=== PATIENT | female | born 1955 | race Caucasian/White ===

== ENCOUNTER 2021-04-19 10:01 | Outpatient (CLI) | payer MEDICARE, MEDICAID, SELFPAY ==
--- NOTE | 2021-04-19 10:14 | MM_ITS ---
WS: [id number] BILATERAL SCREENING DIGITAL MAMMOGRAM WITH CAD HISTORY: SCREENING COMPARISON: None available. Bilateral CC and MLO views submitted. Computer aided detection analyzed. Breast composition: There are scattered areas of fibroglandular density. No suspicious masses, microc alcifications or architectural distortion. Benign calcifications in the anterior LEFT breast. MM/[place] [id number] IMPRESSION: BI-RADS: 2-Benign FOLLOW UP: 1 Year Follow-up
== END 2021-04-19 10:02 | disposition home or self-care (01) ==
LOC: RADSHAW 10:10
PROVIDERS: PCP Nurse Practitioner Family; Visit Provider Nurse Practitioner Family
DX: Z12.31 Encounter for screening mammogram for malignant neoplasm of breast (principal)
CPT/HCPCS: 77067

== ENCOUNTER 2022-01-20 11:41 | Outpatient (CLI) | payer MEDICARE, MEDICAID, SELFPAY ==
--- NOTE | 2022-01-20 11:52 | CT_ITS ---
WS: [id number] LDCT LUNG CANCER SCREENING TECHNIQUE: Noncontrast CT of the chest with coronal and sagittal reformatted images. CLINICAL INFORMATION: HISTORY OF TOBACCO USE COMPARISON: None. DLP: 83.62 mGy.cm DIvol: Mean CTDIvol: 1.60 (mGy) All CT scans at [facility] use at least one of these dose optimization techniques: automat ed exposure control; mA and/or kV adjustment per patient size (includes targeted exams where dose is matched to clinical indication); or iterative reconstruction. FINDINGS: Moderate chronic emphysematous changes. No acute pulmonary infiltrates. No focal pneumonia or pleural fluid. Several scattered noncalcified tiny subcentimeter pulmonary nodules measuring 2 to 3 mm. Normal caliber thoracic aorta. Mild aortic calcification. Coronary calcification. No mediastinal or h ilar lymphadenopathy. No axillary lymphadenopathy. Adrenal glands are normal. Partially visualized low-attenuation lesion LEFT kidney is indeterminate a nd recommend ultrasound or contrast-enhanced CT in further evaluation. This measures approximately 1. 5 cm. Mild hepatomegaly and splenomegaly. Slightly cirrhotic configuration to the liver. Normal GE ju nction. Fatty atrophy of the pancreas. CT/CT lung screening [id number] IMPRESSION: 1. Partially visualized indeterminant LEFT renal lesion measuring 1.5 CM. Aaron mmend further evaluation with ultrasound or contrast-enhanced CT abdomen pelvis . 2. Hepatomegaly and splenomegaly with cirrhotic configuration to the liver. Re commend correlation with liver function tests. LUNG-RADS: 2S-Benign Appearance or Behavior with Significant Findings FOLLOW UP: 12 Month: Continue annual screening with LDCT
== END 2022-01-20 11:42 | disposition home or self-care (01) ==
LOC: RAD 11:46
PROVIDERS: PCP Nurse Practitioner Family; Visit Provider Family Medicine
DX: Z12.2 Encounter for screening for malignant neoplasm of respiratory organs (principal); Z87.891 Personal history of nicotine dependence
CPT/HCPCS: 71271

== ENCOUNTER 2022-02-14 13:35 | Outpatient (CLI) | payer MEDICARE, MEDICAID, SELFPAY ==
--- NOTE | 2022-02-14 13:43 | US_ITS ---
WS: [id number] RENAL ULTRASOUND HISTORY: RENAL LESION COMPARISON: CT 01/20/2022 TECHNIQUE: 2-D and color Doppler imaging of the kidney submitted. Right kidney: 8.7 cm x 3.5 cm x 3.7 cm. Low normal size kidney. No mass or hydronephrosis. Left kidney: 8.7 cm x 4.3 cm x 4.3 cm. Low normal size kidney. There is a small cortical cysts from the inferior pole measuring 2.3 x 1.4 x 1.5 cm. No mass from the upper pole. Aorta: Normal. Urinary Bladder: Normal distention. US/US renal BI* [id number] IMPRESSION: 1. Simple cyst lower pole LEFT kidney measures 2.3 x 1.4 x 1.5 cm. 2. No solid mass or cyst from the upper pole LEFT kidney. 3. Mild bilateral renal atrophy.
== END 2022-02-14 13:36 | disposition home or self-care (01) ==
LOC: RAD 13:36
PROVIDERS: PCP Nurse Practitioner Family; Visit Provider Family Medicine
DX: N28.9 Disorder of kidney and ureter, unspecified (principal); N28.1 Cyst of kidney, acquired; N26.1 Atrophy of kidney (terminal)
CPT/HCPCS: 76770

== ENCOUNTER → 2022-03-02 12:52 | Outpatient (BNVA) | payer MEDICARE, MEDICAID, SELFPAY | PROVIDERS: PCP Family Medicine; Visit Provider Internal Medicine Critical Care Medicine | DX: J44.9 Chronic obstructive pulmonary disease, unspecified (principal); Z87.891 Personal history of nicotine dependence; E11.8 Type 2 diabetes mellitus with unspecified complications | CPT/HCPCS: 99204 ==

== ENCOUNTER 2022-03-21 13:00 | Outpatient (CLI) | payer MEDICARE, MEDICAID, SELFPAY | END 2022-03-21 13:01 | disposition home or self-care (01) | LOC: SLEEP 03-22 13:52 | PROVIDERS: PCP Family Medicine; Visit Provider Internal Medicine Critical Care Medicine | DX: J44.9 Chronic obstructive pulmonary disease, unspecified (principal) | CPT/HCPCS: 94762 ==

== ENCOUNTER 2022-03-30 05:46 | Day surgery (SDC) | payer MEDICARE, MEDICAID, SELFPAY ==
[2022-03-27 13:17] VITALS: BMI 19.8
[2022-03-30 06:11] VITALS: BP 127/71; PULSE 92; RESP 18; TEMP 36.1; O2SAT 92
[2022-03-30] MEDS: sodium chloride 0.9% 1,000 ML 30 ML IV (06:18)
--- NOTE | 2022-03-30 06:31 | P.HP_ITS ---
Same Day Surgery H&P Indication for Procedure/HPI DATE OF PROCEDURE: March 30, 2022 CHIEF COMPLAINT/INDICATIONFOR SURGICAL PROCEDURE: Regurgitation of food PREOP DIAGNOSIS: Regurgitation of food PLANNED PROCEDURE: Operation Date: 03/30/22 07:30 Proposed Procedures p EGD 14060/nausea and vomiting R11.2/R11.1(Not Applicable) - Som Murry MD 01/30/2022 This is a pleasant 67 years old female patient referred to my practice with history of regurgitation of food associated with nausea.? In addition to weight loss and she was placed on a new medication for diabetes per her description.? Patient reports history of hepatitis C that was treated.? She is referred to my practice for further evaluation potential intervention in the form of diagnostic EGD.? Apparently patient has been on PPI therapy for quite some time. 03/30/2022 Patient comes today for diagnostic EGD ROS All systems have been reviewed negative except as for the above or per problem list. Medications/Allergies* Home Medications Medication Instructions Recorded Confirmed Type albuterol sulfate 90 mcg/actuation 2 puff INHALATION Q6H PRN 01/30/22 03/30/22 History aerosol inhaler (ProAir HFA) budesonide-formoterol HFA 160 2 puff INHALATION BID 01/30/22 03/30/22 History mcg-4.5 mcg/actuation aerosol inhaler (Symbicort) doxepin 50 mg capsule 50 mg PO DAILY 01/30/22 03/30/22 History gabapentin 300 mg PO BID 01/30/22 03/30/22 History meloxicam 7.5 mg tablet (Mobic) 7.5 mg PO DAILY 01/30/22 03/30/22 History metformin 750 mg tablet,extended 750 mg PO BID 01/30/22 03/30/22 History release 24 hr montelukast 10 mg tablet 10 mg PO DAILY 01/30/22 03/30/22 History omeprazole 20 mg capsule,delayed 20 mg PO DAILY 01/30/22 03/30/22 History release Allergies/Adverse Reactions Allergy/AdvReac Type Severity Reaction Status Date / Time codeine Allergy ADR-Itching Verified 03/30/22 06:32 Current Medications: Generic Name Dose Route Start Last Admin Trade Name Freq PRN Reason Stop Dose Admin Sodium Chloride 1,000 mls @ 30 mls/hr 03/30/22 06:15 03/30/22 06:18 Sodium Chloride 0.9% IV 03/31/22 06:14 30 mls/hr .Q24H CATHI Administration Pertinent History/Comorbid Conditions* Medical History (Updated 03/02/22 @ 13:59 by Oscar Alonso MD) Chronic obstructive pulmonary disease Cirrhosis Diabetes mellitus Hepatitis C Surgical History (Updated 03/02/22 @ 13:59 by Oscar Alonso MD) History of appendectomy History of hysterectomy History of tonsillectomy and adenoidectomy Social History Smoking and tobacco status: former smoker Quit status (tobacco): has quit using tobacco Year quit tobacco: 2015 Former quit date comment: 1 ppd X 43 years, started at age 18 Pertinent Exam Findings alert, oriented x 3, regular rate & rhythm and procedure specific exam findings (Abdominal examination nontender nondistended soft) Recommendations Surgery/Procedure today (EGD with possible biopsy) Coding Level of Care Code Acute Services Account Manager for Maheshg Zheng
--- NOTE | 2022-03-30 06:50 | ANES.PREANE2 ---
Pre-Anesthetic Assessment Height/Weight: Height 1.55 m Weight 47.627 kg Temp Pulse Resp BP Pulse Ox 97.0 F L 92 18 127/71 92 03/30/22 06:11 03/30/22 06:11 03/30/22 06:11 03/30/22 06:11 03/30/22 06:11 Preop Diagnosis: Regurgitation of food Operation Date: 03/30/22 07:30 Proposed Procedures p EGD 74808/nausea and vomiting R11.2/R11.1(Not Applicable) - Som Murry MD Last intake: Intake Last Liquid Date 03/29/22 Last Liquid Time 18:00 Last Solid Date 03/29/22 Last Solid Time 18:00 Social No alcohol and No tobacco Airway Submandibular: within normal limits Mallampati: Class I Dentition: false History/ROS No significant history except as noted Pulmonary Chronic Obstructive Pulmonary Disease Hepatic Cirrhosis and Hepatitis (previously treated not a active problem.) GI Gastroesophageal Reflux Disease N/V Metabolic Diabetes Mellitus [facility] None reported Neuropsych Anxiety and Depression Anesthetic Plan ASA status: 3 Anesthesia: MAC Medications/Allergies Home Medications Medication Instructions Recorded Confirmed Last Taken Type albuterol sulfate 90 mcg/actuation 2 puff INHALATION Q6H PRN 01/30/22 03/30/22 03/30/22 History aerosol inhaler (ProAir HFA) budesonide-formoterol HFA 160 2 puff INHALATION BID 01/30/22 03/30/22 03/30/22 History mcg-4.5 mcg/actuation aerosol inhaler (Symbicort) doxepin 50 mg capsule 50 mg PO DAILY 01/30/22 03/30/22 03/29/22 History gabapentin 300 mg PO BID 01/30/22 03/30/22 03/29/22 History meloxicam 7.5 mg tablet (Mobic) 7.5 mg PO DAILY 01/30/22 03/30/22 03/29/22 History metformin 750 mg tablet,extended 750 mg PO BID 01/30/22 03/30/22 03/29/22 History release 24 hr montelukast 10 mg tablet 10 mg PO DAILY 01/30/22 03/30/22 03/29/22 History omeprazole 20 mg capsule,delayed 20 mg PO DAILY 01/30/22 03/30/22 03/29/22 History release tiotropium bromide 2.5 2 puff INHALATION DAILY 30 Days #4 03/02/22 03/30/22 03/27/22 Rx mcg/actuation mist for inhalation g (Spiriva Respimat) Allergies Allergy/AdvReac Type Severity Reaction Status Date / Time codeine Allergy ADR-Itching Verified 03/30/22 06:32 Current Medications Generic Name Dose Route Start Last Admin Trade Name Freq PRN Reason Stop Dose Admin Sodium Chloride 1,000 mls @ 30 mls/hr 03/30/22 06:15 03/30/22 06:18 Sodium Chloride 0.9% IV 03/31/22 06:14 30 mls/hr .Q24H CATHI Administration PFSH Anesthesia Medical History (Updated 03/02/22 @ 13:59 by Oscar Alonso MD) Chronic obstructive pulmonary disease Cirrhosis Diabetes mellitus Hepatitis C Surgical History (Updated 03/02/22 @ 13:59 by Oscar Alonso MD) History of appendectomy History of hysterectomy History of tonsillectomy and adenoidectomy Social History Smoking and tobacco status: former smoker Quit status (tobacco): has quit using tobacco Year quit tobacco: 2015 Former quit date comment: 1 ppd X 43 years, started at age 18 Data Anesthesia Cardiac Studies: No Data to Display
[2022-03-30 08:01] VITALS: BP 114/62; PULSE 107; RESP 18; TEMP 36.2; O2SAT 92
[2022-03-30 08:23] VITALS: BP 116/61; PULSE 92; RESP 18; O2SAT 97
[2022-03-30 08:33] VITALS: PULSE 91; RESP 17; O2SAT 96
[2022-03-30] MEDS: ipratropium-albuterol 3 mL Neb INHALATION (08:33)
[2022-03-30 08:42] VITALS: PULSE 94
[2022-03-30 08:43] VITALS: O2SAT 100
--- NOTE | 2022-03-30 14:24 | ANE.PACU2 ---
Inpatient post-anesthesia follow up: Airway intact: Yes Vital signs: Temperature 97.2 F Pulse Rate 94 Respiratory Rate 17 Blood Pressure 116/61 Pulse Oximetry 100 Oxygen Delivery Me thod Room Air Oxygen Flow Rate 4 Fraction of Inspir ed Oxygen Hydration adequate: Yes Nausea and vomiting: No Pain level: 1 Mental status: Baseline
== END 2022-03-30 08:47 | disposition home or self-care (01) ==
PROVIDERS: PCP Family Medicine; Visit Provider Surgery
PROC: 0DJ08ZZ Inspection of Upper Intestinal Tract, Via Natural or Artificial Opening Endoscopic (ICD-10-PCS; CPT 43235; principal; 2022-03-30 07:30)
DX: R11.2 Nausea with vomiting, unspecified (principal); K21.00 Gastro-esophageal reflux disease with esophagitis, without bleeding; K29.70 Gastritis, unspecified, without bleeding; J44.9 Chronic obstructive pulmonary disease, unspecified; E11.9 Type 2 diabetes mellitus without complications; Z79.84 Long term (current) use of oral hypoglycemic drugs; Z86.19 Personal history of other infectious and parasitic diseases; Z87.891 Personal history of nicotine dependence
CPT/HCPCS: 43239; 88305; 94640; J2704; J7030

== ENCOUNTER → 2022-04-19 10:56 | Outpatient (BNVA) | payer MEDICARE, MEDICAID, SELFPAY | PROVIDERS: PCP Family Medicine; Visit Provider Surgery | DX: Z09 Encounter for follow-up examination after completed treatment for conditions other than malignant neoplasm (principal); R10.9 Unspecified abdominal pain; K29.70 Gastritis, unspecified, without bleeding; K20.90 Esophagitis, unspecified without bleeding; R11.10 Vomiting, unspecified | CPT/HCPCS: 99213 ==

== ENCOUNTER 2022-06-23 06:26 | Day surgery (SDC) | payer MEDICARE, MEDICAID, SELFPAY ==
[2022-06-21 12:43] VITALS: BMI 18.4
--- NOTE | 2022-06-23 06:31 | W.PM.OPSFHP ---
Same Day Surgery H&P Indication for Procedure/HPI DATE OF PROCEDURE: June 23, 2022 CHIEF COMPLAINT/INDICATIONFOR SURGICAL PROCEDURE: Nausea and vomiting PREOP DIAGNOSIS: Regurgitation of food PLANNED PROCEDURE: Operation Date: 06/23/22 08:00 Proposed Procedures p EGD 18173,K29.70(Not Applicable) - Som Murry MD Patient comes today for follow-up diagnostic EGD as she did have one back in March 2022 and was found to have reflux esophagitis GERD in addition to gastritis and intraluminal gastric blood patient also was scheduled for gastric emptying studies and apparently did not take place yet. We will plan to repeat the diagnostic EGD today and make sure there is no more blood in the stomach. ROS All systems have been reviewed negative except as for the above or per problem list. Medications/Allergies* Home Medications Medication Instructions Recorded Confirmed Type albuterol sulfate 90 mcg/actuation 2 puff inhalation Q6H PRN 01/30/22 06/23/22 History aerosol inhaler (ProAir HFA) Shortness Of Breath budesonide-formoterol HFA 160 2 puff inhalation BID 01/30/22 06/23/22 History mcg-4.5 mcg/actuation aerosol inhaler (Symbicort) doxepin 50 mg capsule 50 mg PO DAILY 01/30/22 06/23/22 History gabapentin 300 mg PO BID 01/30/22 06/23/22 History metformin 750 mg tablet,extended 750 mg PO BID 01/30/22 06/23/22 History release 24 hr Allergies/Adverse Reactions Allergy/AdvReac Type Severity Reaction Status Date / Time codeine Allergy ADR-Itching Verified 06/23/22 06:35 Pertinent History/Comorbid Conditions* Medical History (Updated 04/22/22 @ 09:21 by Som Murry MD) Chronic obstructive pulmonary disease Cirrhosis Diabetes mellitus Hepatitis C Surgical History (Updated 03/02/22 @ 13:59 by Oscar Alonso MD) History of appendectomy History of hysterectomy History of tonsillectomy and adenoidectomy Social History Smoking and tobacco status: former smoker Quit status (tobacco): has quit using tobacco Year quit tobacco: 2015 Former quit date comment: 1 ppd X 43 years, started at age 18 Pertinent Exam Findings alert, oriented x 3, regular rate & rhythm and procedure specific exam findings (Abdominal examination nontender nondistended soft) Recommendations Surgery/Procedure today (EGD with possible biopsy) Coding Level of Care Code Acute Machine Filler for pascual Calzada
[2022-06-23 06:40] VITALS: BP 123/75; PULSE 103; RESP 18; TEMP 36.1; O2SAT 90
[2022-06-23] MEDS: sodium chloride 0.9% 1,000 ML 30 ML IV (06:48)
--- NOTE | 2022-06-23 07:25 | P.ANESASSM_ITS ---
Pre-Anesthetic Assessment Height/Weight: Height 1.57 m Weight 45.813 kg Temp Pulse Resp BP Pulse Ox O2 Del Method 97 F L 103 H 18 123/75 90 06/23/22 06:40 06/23/22 06:40 06/23/22 06:40 06/23/22 06:40 06/23/22 06:40 06/23/22 06:40 Preop Diagnosis: Erosive gastritis Operation Date: 06/23/22 08:00 Proposed Procedures p EGD 96662,K29.70(Not Applicable) - oSm Murry MD Familial anesthetic complications: none Was Beta Chhaya taken within 24 hours: N/A Was Clonidine taken within 24 hours: N/A Last intake: Intake Last Liquid Date 06/22/22 Last Liquid Time 22:30 Last Solid Date 06/22/22 Last Solid Time 22:30 Social Tobacco and No alcohol smokes MJ Exam alert and oriented x 3 Airway Submandibular: within normal limits Cervical ROM: within normal limits Mallampati: Class II Dentition: false History/ROS No significant history except as noted Pulmonary Chronic Obstructive Pulmonary Disease None reported Hepatic Cirrhosis GI Gastroesophageal Reflux Disease Metabolic Diabetes [place] [facility] [place] None reported Neuropsych None reported Anesthetic Plan ASA status: 3 Anesthesia: Anesthesia Evaluation and MAC Risk of > 500 ml blood loss (7ml/kg in children): No Medications/Allergies Home Medications Medication Instructions Recorded Confirmed Last Taken Type albuterol sulfate 90 mcg/actuation 2 puff inhalation Q6H PRN 01/30/22 06/23/22 03/30/22 History aerosol inhaler (ProAir HFA) Shortness Of Breath budesonide-formoterol HFA 160 2 puff inhalation BID 01/30/22 06/23/22 06/23/22 History mcg-4.5 mcg/actuation aerosol inhaler (Symbicort) doxepin 50 mg capsule 50 mg PO DAILY 01/30/22 06/23/22 06/22/22 History gabapentin 300 mg PO BID 01/30/22 06/23/22 06/22/22 History metformin 750 mg tablet,extended 750 mg PO BID 01/30/22 06/23/22 06/22/22 History release 24 hr omeprazole 20 mg capsule,delayed 20 mg PO BIDWMEAL #60 caps 03/30/22 06/23/22 06/22/22 Rx release sucralfate 1 gram tablet (Carafate) 1 g PO TID 12 weeks #252 tabs 03/30/22 06/23/22 06/22/22 Rx Allergies Allergy/AdvReac Type Severity Reaction Status Date / Time codeine Allergy ADR-Itching Verified 06/23/22 06:35 Current Medications Generic Name Dose Route Start Last Admin Trade Name Freq PRN Reason Stop Dose Admin Sodium Chloride 1,000 mls @ 30 mls/hr 06/23/22 06:30 06/23/22 06:48 Sodium Chloride 0.9% IV 06/24/22 06:29 30 mls/hr .Q24H CATHI Administration PFSH Anesthesia Medical History Chronic obstructive pulmonary disease Cirrhosis Diabetes mellitus Hepatitis C Surgical History History of appendectomy History of hysterectomy History of tonsillectomy and adenoidectomy Social History Smoking and tobacco status: former smoker Quit status (tobacco): has quit using tobacco Year quit tobacco: 2015 Former quit date comment: 1 ppd X 43 years, started at age 18 Data Anesthesia Cardiac Studies: No Data to Display
[2022-06-23 08:08] VITALS: BP 95/53; PULSE 84; RESP 18; TEMP 36.3; O2SAT 96
--- NOTE | 2022-06-23 08:10 | ANE.PACU2 ---
Inpatient post-anesthesia follow up: Airway intact: Yes Vital signs: Temperature 97.4 F Pulse Rate 84 Respiratory Rate 18 Blood Pressure 95/53 Pulse Oximetry 96 Oxygen Delivery Me thod Room Air Oxygen Flow Rate Fraction of Inspir ed Oxygen Hydration adequate: Yes Nausea and vomiting: No Pain level: 1 Mental status: Baseline
[2022-06-23 08:18] VITALS: BP 98/62; PULSE 86; RESP 18; TEMP 36.3; O2SAT 94
== END 2022-06-23 08:29 | disposition home or self-care (01) ==
PROVIDERS: PCP Family Medicine; Visit Provider Surgery
PROC: 0DJ08ZZ Inspection of Upper Intestinal Tract, Via Natural or Artificial Opening Endoscopic (ICD-10-PCS; CPT 43235; principal; 2022-06-23 08:00)
DX: K29.50 Unspecified chronic gastritis without bleeding (principal); B96.81 Helicobacter pylori [H. pylori] as the cause of diseases classified elsewhere; K44.9 Diaphragmatic hernia without obstruction or gangrene; J44.9 Chronic obstructive pulmonary disease, unspecified; K21.9 Gastro-esophageal reflux disease without esophagitis; E11.9 Type 2 diabetes mellitus without complications; Z79.84 Long term (current) use of oral hypoglycemic drugs; Z86.19 Personal history of other infectious and parasitic diseases; Z87.891 Personal history of nicotine dependence
CPT/HCPCS: 43239; 88305; J2704; J7030

== ENCOUNTER 2022-07-04 12:16 | Outpatient (CLI) | payer MEDICARE, MEDICAID, SELFPAY ==
--- NOTE | 2022-07-04 12:21 | XR_ITS ---
WS: [id number] DEXA (DUAL ENERGY X-RAY ABSORPTIOMETRY) Bone mineral density was performed using a Primo1D machine. HISTORY: OSTEOPOROSIS COMPARISON: None available. Lumbar spine BMD (L1-L4): 0.871 g/cm2 T score: -2.6 Z score: -0.3 Total hip BMD: Left: 0.733 g/cm2. T score: -2.2 Z score: -0.4 Right: 0.677 g/cm2. T score: -2.6 Z score: -0.9 10 year probability of a major osteoporotic fracture is 12.7%. XR/XR DEXA axial skeleton* [id number] IMPRESSION: OSTEOPOROSIS based upon the WHO classification for females.
== END 2022-07-04 12:17 | disposition home or self-care (01) ==
LOC: RAD 12:17
PROVIDERS: PCP Family Medicine; Visit Provider Family Medicine
DX: M81.0 Age-related osteoporosis without current pathological fracture (principal)
CPT/HCPCS: 77080

== ENCOUNTER 2022-07-07 09:00 | Outpatient (CLI) | payer MEDICARE, MEDICAID, SELFPAY ==
--- NOTE | 2022-07-07 10:00 | NM_ITS ---
WS: [id number] NUCLEAR MEDICINE GASTRIC EMPTYING EXAMINATION HISTORY: Abdominal pain, hepatitis C. COMPARISON: None available. TECHNIQUE: The patient ingested a meal containing 1.03 mCi of Tc 99m sulfur colloid mixed with eggs. The patient was placed in supine position and imaging over the abdomen was performed for a total of 9 0 minutes. Computer acquisition with the region of interest placed over the stomach to evaluate gastr ic emptying half-time. At 120 minutes approximately 35% of the ingested meal has emptied from the stomach. This is less than 50% of emptying. There is a normal downsloping curvature of the graft. NM/[place] [id number] IMPRESSION: Marked delayed emptying of the stomach. Only 35% has emptied at 120 minutes. No rmal emptying is considered to be 60% at 120 minutes.
== END 2022-07-07 09:01 | disposition home or self-care (01) ==
LOC: RAD 09:02
PROVIDERS: PCP Family Medicine; Visit Provider Surgery
DX: R10.9 Unspecified abdominal pain (principal); K29.70 Gastritis, unspecified, without bleeding
CPT/HCPCS: 78264; A9541

== ENCOUNTER → 2022-07-19 11:36 | Day surgery (SDC) | payer MEDICARE, MEDICAID, SELFPAY ==
[2022-07-19 11:55] VITALS: BP 184/71; PULSE 95; RESP 18; TEMP 36.2; O2SAT 94
--- NOTE | 2022-07-19 12:00 | PC.NURSE ---
Pt to GI lab for Reclast infusion. Labs drawn on 07/05/22 show Calcium level at 9.9 and Creatnine clearance 53. Infusion given as ordered.
== END ==
PROVIDERS: PCP Family Medicine; Visit Provider Family Medicine
DX: M81.8 Other osteoporosis without current pathological fracture (principal)
CPT/HCPCS: 96365; J3489

== ENCOUNTER → 2022-07-20 13:44 | Outpatient (BNVA) | payer MEDICARE, MEDICAID, SELFPAY | PROVIDERS: PCP Family Medicine; Visit Provider Surgery | DX: K29.70 Gastritis, unspecified, without bleeding (principal); R11.10 Vomiting, unspecified | CPT/HCPCS: 99213 ==

== ENCOUNTER 2022-09-20 08:01 | Outpatient (CLI) | payer MEDICARE, MEDICAID, SELFPAY ==
--- NOTE | 2022-09-20 08:00 | US_ITS ---
WS: [id number] ULTRASOUND ABDOMEN LIMITED CLINICAL INFORMATION: esophagitis, unspecified without bleeding COMPARISON: None. FINDINGS: Liver Size: Normal. Craniocaudal length: 14.8 cm. Echogenicity: Coarse Surface nodularity: None. Mass (size and location): None. Bile ducts Intrahepatic ducts: Normal. Common bile duct diameter: 0.2 cm. Gallbladder 9 mm calculus Gallstones: Present Gallbladder sludge: None. Gallbladder wall thickening: None. Pericholecystic fluid: None. Sonographic Rashid sign: Absent. Pancreas Normal as visualized. Right kidney: Normal. Hydronephrosis: None. Size: 9.7 cm x 5.4 cm x 4.6 cm. Abdominal aorta and IVC Visualized portions are normal. Ascites: None. US/US gall bladder [id number] IMPRESSION: 1. Coarse hepatic echotexture suspicious for cirrhosis/hepatocellular disease. Liver size upper limits of normal. Recommend correlation with liver function t ests. 2. Cholelithiasis with single visualized shadowing calculus measuring 9 mm. No gallbladder wall thickening or pericholecystic fluid. 3. Normal common bile duct. 4. No hydronephrosis in the RIGHT kidney.
== END 2022-09-20 08:02 | disposition home or self-care (01) ==
LOC: RAD 08:02
PROVIDERS: PCP Family Medicine; Visit Provider Surgery
DX: K20.90 Esophagitis, unspecified without bleeding (principal); R11.10 Vomiting, unspecified; K80.20 Calculus of gallbladder without cholecystitis without obstruction
CPT/HCPCS: 76705

== ENCOUNTER → 2022-10-05 15:41 | Outpatient (BNVA) | payer MEDICARE, MEDICAID, SELFPAY | PROVIDERS: PCP Family Medicine; Visit Provider Surgery | DX: Z09 Encounter for follow-up examination after completed treatment for conditions other than malignant neoplasm (principal); K74.60 Unspecified cirrhosis of liver; K80.20 Calculus of gallbladder without cholecystitis without obstruction | CPT/HCPCS: 99212 ==

== ENCOUNTER 2023-03-29 14:42 | Outpatient (CLI) | payer MEDICARE, MEDICAID, SELFPAY ==
--- NOTE | 2023-03-29 14:59 | MM_ITS ---
WS: [id number] BILATERAL 3D TOMOSYNTHESIS DIGITAL SCREENING MAMMOGRAPHY WITH CAD CLINICAL INFORMATION: SCREENING HISTORY: Screening mammogram. No current complaints. COMPARISON: April 19, 2021 TECHNIQUE: Bilateral CC and MLO views. FINDINGS: Scattered fibroglandular densities bilaterally. No suspicious focal mass, asymmetry, calcifications, or architectural distortion. No evidence of malignancy. Vascular calcification. MM/[place] [id number] IMPRESSION: BI-RADS: 2-Benign FOLLOW UP: 1 Year Follow-up Recommend return to annual screening mammography.
--- NOTE | 2023-03-29 15:02 | CT_ITS ---
WS: [id number] LDCT LUNG CANCER SCREENING TECHNIQUE: Noncontrast CT of the chest with coronal and sagittal reformatted images. CLINICAL INFORMATION: HX OF TOBACCO USE COMPARISON: 2021 DLP: 39.99 mGy.cm DIvol: Mean CTDIvol: 0.50 (mGy) All CT scans at [facility] use at least one of these dose optimization techniques: automat ed exposure control; mA and/or kV adjustment per patient size (includes targeted exams where dose is matched to clinical indication); or iterative reconstruction. FINDINGS: Advanced chronic emphysematous changes. Several scattered noncalcified tiny subcentimeter pulmonary n odules measuring 2 to 4 mm unchanged. Normal caliber thoracic aorta. Aortic calcification. Coronary calcification. No mediastinal or hilar lymphadenopathy. No axillary lymphadenopathy. Adrenal glands are normal. Normal GE junction. Cirrhotic configuration to the liver partially visuali zed. Mild thoracic kyphosis. CT/CT lung screening [id number] IMPRESSION: LUNG-RADS: 2-Benign Appearance or Behavior FOLLOW UP: 12 Month: Continue annual screening with LDCT
== END 2023-03-29 14:43 | disposition home or self-care (01) ==
LOC: RAD 14:43
PROVIDERS: PCP Family Medicine; Visit Provider Family Medicine
DX: Z12.2 Encounter for screening for malignant neoplasm of respiratory organs (principal); Z87.891 Personal history of nicotine dependence; Z12.31 Encounter for screening mammogram for malignant neoplasm of breast
CPT/HCPCS: 71271; 77063; 77067

== ENCOUNTER 2024-06-01 11:12 | Inpatient (IN) | payer MEDICARE, MEDICAID, SELFPAY ==
[2024-06-01] VITALS (14 sets, daily range): BP systolic 116–147; BP diastolic 60–92; PULSE 87–103; RESP 17–22; TEMP 36.6–36.9; O2SAT 88–95; BMI 20.7; BMI 20.9
--- NOTE | 2024-06-01 11:19 | ECG_ITS ---
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 Measurements Intervals [place] Rate: 90 P: 71 DC: 152 QRS: 42 QRSD: 117 T: 48 QT: 370 QTc: 453 Interpretive Statements SINUS RHYTHM RIGHT BUNDLE BRANCH BLOCK [120+ ms QRS DURATION, UPRIGHT V1, 40+ ms S IN I/aVL/V4/V5/V6] No previous ECG available for comparison Electronically Signed On 06-01-2024 12:04:06 CDT by Angélica Castillo M.D. [id number]
--- NOTE | 2024-06-01 11:20 | XRR_ITS ---
PROCEDURE INFORMATION: Exam: XR Chest Exam date and time: 06/01/2024 12:12 PM Age: 69 years old Clinical indication: Shortness of breath; Patient HX: SOB; Weakness; HX copd TECHNIQUE: Imaging protocol: Radiologic exam of the chest. Views: 1 view. COMPARISON: CT lung screening [id number] 03/29/2023 3:06 PM FINDINGS: Lungs: Unremarkable. No consolidation. Pleural spaces: Unremarkable. No pleural effusion. No pneumothorax. Heart/Mediastinum: Unremarkable. No cardiomegaly. Bones/joints: Unremarkable. XR/XR chest 1V portable [id number] IMPRESSION: No acute findings.
--- NOTE | 2024-06-01 11:30 | ED_ITS ---
HPI - URI/Sore Throat 2 General: Chief Complaint: Upper Respiratory Infection Stated Complaint: SOB Time Seen by Provider: 06/01/24 11:16 Source: patient and EMS Mode of arrival: EMS Limitations: no limitations History of Present Illness: 69-year-old female who has a history of COPD states she has been having cough congestion and some increasing shortness of breath over the last 2 days. Had some slight bodyaches denies any fevers. Patient does not wear oxygen at home she is 94% on room air. Denies any Associated symptoms: Reports chills; Deny abdominal pain, chest pain, diarrhea, fever(s), headache(s), nausea or vomiting Review of Systems 2 Const: Reports: chills and body aches; Denies: fever(s) or change in appetite Eyes: Denies: eye discomfort ENMT: Denies: throat pain or dental pain Card: Denies: chest pain Resp: Reports: dyspnea, non-productive cough and wheezing GI: Denies: abdominal pain, nausea, vomiting or diarrhea : Denies: dysuria Musc: Denies: neck pain or back pain Skin/Breast: Denies: rash Neuro: Denies: headache(s) PFSH ED 2 PFSH: Medical History Esophagitis Diabetes mellitus Hepatitis C Cirrhosis Chronic obstructive pulmonary disease Surgical History History of hysterectomy History of appendectomy History of tonsillectomy and adenoidectomy Social History Smoking and tobacco/nicotine status: former use of tobacco/nicotine Quit status (tobacco/nicotine): has quit using Year quit tobacco: 2015 Former quit date comment: 1 ppd X 43 years, started at age 18 Physical Exam 2 Const: COMMON NORMALS: patient oriented x3 HENMT: COMMON NORMALS: normocephalic and atraumatic HEAD & SCALP: n ormocephalic and atraumatic Neck/C-Spine: COMMON NORMALS: full ROM and supple Chest: COMMONS NORMALS: normal inspection of the chest Resp: COMMON NORMALS: normal respiratory effort, No retractions and No use of accessory muscles AUSCULTATION: wheezes Cardio: COMMON NORMALS: regular rate, regular rhythm and No murmurs present (Cardio) RATE: regular rate RHYTHM: regular rhythm Extremity: COMMON NORMALS: normal to inspection and full ROM Neuro: COMMON NORMALS: patient oriented x3, moves all extremities and no focal motor deficits Psych: COMMON NORMALS: mental status grossly normal, Normal thought process present and cooperative THOUGHT PROCESS: Normal thought process present Skin: COMMON NORMALS: no rashes or lesions noted and no wounds GENERAL SKIN EXAM: no rashes or lesions noted Course 2 Vital Signs: Vital signs: Vital Signs Temperature 97.8 F 06/01/24 11:18 Pulse Rate 94 06/01/24 12:30 Respiratory Rate 20 H 06/01/24 11:53 Blood Pressure 133/63 06/01/24 12:30 Pulse Oximetry 91 06/01/24 12:30 Oxygen Delivery Me thod Room Air 06/01/24 12:30 MDM - URI/Sore Throat Medical Decision Making Patient presents with cough congestion possible URI with a COPD exacerbation patient does not use oxygen at home she is requiring 2 to 3 L here of oxygen. X-ray shows no pneumonia I did give her breathing treatment Decadron she is still requiring oxygen I spoke to the hospitalist will admit Medical Records I reviewed the patient's medical records. Lab Data I reviewed the patient's lab results. 06/01/24 11:30 06/01/24 11:30 Radiology Impressions Chest X-Ray 06/01/24 11:20 IMPRESSION: No acute findings. Laboratory Results WBC 8.77 10^3/uL (3.29-11.43) 06/01/24 11:30 RBC 5.30 10^6/uL (3.85-5.65) 06/01/24 11:30 Hgb 14.20 g/dL (11.27-16.99) 06/01/24 11:30 Hct 45.1 % (36-47) 06/01/24 11:30 MCV 85.1 fl (85-98) 06/01/24 11:30 MCH 26.8 pg (27-33) L 06/01/24 11:30 MCHC 31.5 g/dL (30-55) 06/01/24 11:30 RDW 14.9 % (12.1-15.1) 06/01/24 11:30 Plt Count 247 10^3/cmm (157-399) 06/01/24 11:30 MPV 10.9 fL (7.4-10.4) H 06/01/24 11:30 Neut % (Auto) 72.1 % 06/01/24 11:30 Lymph % (Auto) 17.4 % 06/01/24 11:30 Warrick % (Auto) 8.0 % 06/01/24 11:30 Eos % (Auto) 1.7 % 06/01/24 11:30 Baso % (Auto) 0.5 % 06/01/24 11:30 Neut # (Auto) 6.32 10^3/uL (1.8-7.7) 06/01/24 11:30 Lymph # (Auto) 1.5 10^3/uL (0.8-4.8) 06/01/24 11:30 Warrick # (Auto) 0.7 10^3/uL (0.2-0.9) 06/01/24 11:30 Eos # (Auto) 0.2 10^3/uL (0.0-0.8) 06/01/24 11:30 Baso # (Auto) 0.0 10^3/uL (0.0-0.1) 06/01/24 11:30 Nucleated RBC % (auto) 0 % 06/01/24 11:30 Nucleated RBCs # 0.0 /100WBC 06/01/24 11:30 Sodium 135 mmol/L (136-145) L 06/01/24 11:30 Potassium 4.2 mmol/L (3.5-5.1) 06/01/24 11:30 Chloride 101 mmol/L (98-107) 06/01/24 11:30 Carbon Dioxide 21 mmol/L (22-29) L 06/01/24 11:30 Anion Gap 17.2 (5-19) 06/01/24 11:30 BUN 8 mg/dL (8-23) 06/01/24 11:30 Creatinine 0.8 mg/dL (0.5-0.9) 06/01/24 11:30 GFR Calculation 71.1 mL/min (90-130) L 06/01/24 11:30 Glucose 340 mg/dL (65-115) H 06/01/24 11:30 Calculated Osmolality 292 mOsm/kg (285-295) 06/01/24 11:30 Calcium 8.6 mg/dL (8.5-10.5) 06/01/24 11:30 Total Bilirubin 0.6 mg/dL (0.15-1.2) 06/01/24 11:30 AST 20 U/L (0-32) 06/01/24 11:30 ALT 18 U/L (0-33) 06/01/24 11:30 Alkaline Phosphatase 84 U/L (35-105) 06/01/24 11:30 NT-Pro-B Natriuret Pep 56 pg/mL (0-125) 06/01/24 11:30 Total Protein 7.0 g/dL (6.6-8.7) 06/01/24 11:30 Albumin 3.7 g/dL (3.5-5.2) 06/01/24 11:30 Globulin 3.3 g/dL (1.3-4.6) 06/01/24 11:30 SARS-CoV-2 Ag (Rapid) negative (Negative) 06/01/24 11:42 All radiology interpretation(s) finalized by discharge EKG Data EKG 1: I personally reviewed and interpreted this EKG as follows: EKG interpretation date: 06/01/24 EKG interpretation time: 12:00 Interpretation: nsr hr [address] or t wave abnormalities qrs 117 qtc 417 Discharge Plan Discharge Patient Disposition: Admitted As Inpatient Clinical Impression: Acute exacerbation of chronic obstructive pulmonary disease, Acute respiratory failure with hypoxia Condition: Stable Prescriptions: No Action doxepin 50 mg capsule 50 mg PO DAILY metformin 750 mg tablet extended release 24 hr 750 mg PO BID budesonide-formoterol [Symbicort] 160-4.5 mcg/actuation HFA aerosol inhaler 2 puff inhalation BID albuterol sulfate [ProAir HFA] 90 mcg/actuation HFA aerosol inhaler 2 puff inhalation Q6H PRN (Reason: Shortness Of Breath) gabapentin 300 mg PO BID pantoprazole [Protonix] 40 mg tablet,delayed release (DR/EC) 40 mg PO DAILY 30 Days Qty: 30 3RF sucralfate [Carafate] 1 gram tablet 1 g PO TID 84 Days Qty: 252 2RF Referrals: Emanuel Gonzales MD [Primary Care Provider] - Coding Level of Care Code ED Lime Mixer for Chg Fwd
[2024-06-01 11:37] LABS: Basophils % 0.5 %; Eosinophils # 0.2 10^3/uL (0.0-0.8); Eosinophils % 1.7 %; Hematocrit 45.1 % (36-47); Lymphocytes # 1.5 10^3/uL (0.8-4.8); Lymphocytes % 17.4 %; Mean Corpuscular HGB Conc 31.5 g/dL (30-55); Mean Corpuscular Hemoglobin 26.8 pg (27-33); Mean Corpuscular Volume 85.1 fl (85-98); Mean Platelet Volume 10.9 fL (7.4-10.4); Monocytes # 0.7 10^3/uL (0.2-0.9); Neutrophils # 6.32 10^3/uL (1.8-7.7); Neutrophils % 72.1 %; Nucleated Red Blood Cells % 0 %; Platelet Count 247 10^3/cmm (157-399); Red Cell Distribution Width 14.9 % (12.1-15.1); White Blood Count 8.77 10^3/uL (3.29-11.43)
[2024-06-01] MEDS: methylPREDNISolone sod succ 125 mg/2 mL INJ IV (11:37)
[2024-06-01] MEDS: ipratropium-albuterol 3 mL Neb INHALATION ×2 (11:43→19:42)
[2024-06-01] MEDS: albuterol 2.5 mg/3 mL Neb INHALATION (11:43)
[2024-06-01 12:04] LABS: Alanine Aminotransferase 18 U/L (0-33); Albumin Level 3.7 g/dL (3.5-5.2); Alkaline Phosphatase 84 U/L (35-105); Anion Gap 17.2 (5-19); Aspartate Amino Transferase 20 U/L (0-32); Blood Urea Nitrogen 8 mg/dL (8-23); Calcium 8.6 mg/dL (8.5-10.5); Carbon Dioxide 21 mmol/L (22-29); Chloride 101 mmol/L (98-107); Creatinine Clr Calc Pharmacy 50.9601; Globulin 3.3 g/dL (1.3-4.6); Glomerular Filtration Rate 71.1 mL/min (90-130); Glucose 340 mg/dL (65-115); NT Pro B Type Natriuretic Pept 56 pg/mL (0-125); Osmolality Calculated 292 mOsm/kg (285-295); Potassium 4.2 mmol/L (3.5-5.1); Sodium 135 mmol/L (136-145); Total Bilirubin 0.6 mg/dL (0.15-1.2)
[2024-06-01 12:33] LABS: SARS Covid-2 Antigen negative (Negative)
--- NOTE | 2024-06-01 13:44 | CTR_ITS ---
PROCEDURE INFORMATION: Exam: CTA Chest With Contrast Exam date and time: 06/01/2024 2:22 PM Age: 69 years old Clinical indication: Other: Hemoptysis TECHNIQUE: Imaging protocol: Computed tomographic angiography of the chest with contrast. Exam focused on the arteries. 3D rendering (Not supervised by radiologist): MIP and/or 3D reconstructed images were created by the technologist. Radiation optimization: All CT scans at this facility use at least one of these dose optimization techniques: automated exposure control; mA and/or kV adjustment per patient size (includes targeted exams where dose is matched to clinical indication); or iterative reconstruction. Contrast material: OMNI 350; Contrast volume: 61 ml; Contrast route: INTRAVENOUS (IV); COMPARISON: CT lung screening [id number] 03/29/2023 3:06 PM RADIATION DOSE METRICS: Total DLP (mGy-cm): 234.18 FINDINGS: Pulmonary arteries: Normal. No pulmonary emboli. Aorta: Unremarkable. No aortic aneurysm. No aortic dissection. Lungs: There are emphysematous changes in the lungs with bilateral lung scarring and or atelectasis. Pleural spaces: Unremarkable. No pneumothorax. No pleural effusion. Heart: Unremarkable. No cardiomegaly. No pericardial effusion. Coronary arteries: Multivessel atherosclerotic disease which involves the coronary arteries. Lymph nodes: Unremarkable. No enlarged lymph nodes. Liver: Lobulated liver consistent with cirrhosis. Bones/joints: Unremarkable. No acute fracture. Soft tissues: Unremarkable. CT/CT angio chest PE protcl [id number] IMPRESSION: 1. Lobulated liver consistent with cirrhosis. 2. There are emphysematous changes in the lungs. COMMENTS: The presence of pulmonary emphysema on CT is an independent risk factor for lung cancer. In the absence of a history or active diagnosis of lung cancer, it is recommended that this patient with emphysema be evaluated for enrollment in a low dose CT lung cancer screening program.
[2024-06-01 14:15] LABS: Procalcitonin 0.05 ng/mL (0-0.5)
[2024-06-01] MEDS: iohexol 350 mg/mL 500 mL Btl (per mL) IV (14:25)
--- NOTE | 2024-06-01 14:32 | PM.HP ---
Providers/Chief Complaint Primary Care Provider: Emanuel Gonzales MD Chief Complaint: SOB History of Present Illness Ines Serna is a 69 year old female with a past medical history of type 2 diabetes mellitus, copd, not an active smoker, who presents [facility] for shortness of breath, cough, fatigue, malaise. According to patient, she has had a head cold for the last few days, does report fevers, cough, fatigue, malaise, shortness of breath, wheezing. She recently returned from a trip near [place], she drove, no calf pain, calf swelling, does report hemoptysis, 1 time, she does not use oxygen at home currently she is on 3 L Review of Systems Const: Reports: fever(s) Resp: Reports: dyspnea and wheezing Medications/Allergies Home Medications Medication Instructions Recorded Confirmed Last Taken Type albuterol sulfate 90 mcg/actuation 2 puff inhalation Q6H PRN 01/30/22 10/07/22 03/30/22 History aerosol inhaler (ProAir HFA) Shortness Of Breath budesonide-formoterol HFA 160 2 puff inhalation BID 01/30/22 10/07/22 06/23/22 History mcg-4.5 mcg/actuation aerosol inhaler (Symbicort) doxepin 50 mg capsule 50 mg PO DAILY 01/30/22 10/07/22 06/22/22 History gabapentin 300 mg PO BID 01/30/22 10/07/22 06/22/22 History metformin 750 mg tablet,extended 750 mg PO BID 01/30/22 10/07/22 06/22/22 History release 24 hr pantoprazole 40 mg tablet,delayed 40 mg PO DAILY 30 days #30 tabs 10/16/22 Unknown Rx release (Protonix) sucralfate 1 gram tablet (Carafate) 1 g PO TID 12 weeks #252 tabs 10/16/22 Unknown Rx Allergies Allergy/AdvReac Type Severity Reaction Status Date / Time codeine Allergy ADR-Itching Verified 06/01/24 11:20 PFSH Acute PFSH: Medical History Esophagitis Diabetes mellitus Hepatitis C Cirrhosis Chronic obstructive pulmonary disease Surgical History History of hysterectomy History of appendectomy History of tonsillectomy and adenoidectomy Social History Smoking and tobacco/nicotine status: former use of tobacco/nicotine Quit status (tobacco/nicotine): has quit using Year quit tobacco: 2015 Former quit date comment: 1 ppd X 43 years, started at age 18 Vitals/I&O/Wt Last Vital Signs Temp 97.8 F 06/01/24 11:18 Pulse 93 06/01/24 13:30 Resp 20 H 06/01/24 11:53 BP 147/80 06/01/24 13:30 Pulse Ox 91 06/01/24 13:30 O2 Del Method Nasal Cannula 06/01/24 13:30 Weight last 48 hrs Weight 49.895 kg Physical Exam Const: COMMON NORMALS: no acute distress and patient oriented x3 Eye: COMMON NORMALS: Equal, round and reactive pupils present and EOMs intact bilaterally Resp: COMMON NORMALS: normal respiratory effort, No retractions, No use of accessory muscles and clear to auscultation bilaterally AUSCULTATION: wheezes Cardio: COMMON NORMALS: no JVD, regular rate, regular rhythm, S1 normal heart sound present and S2 normal heart sound present RATE: regular rate RHYTHM: regular rhythm HEART SOUNDS: S1 normal heart sound present and S2 normal heart sound present GI: COMMON NORMALS: Normal to inspection, nondistended, normoactive bowel sounds present and Soft to palpation Extremity: COMMON NORMALS: no calf tenderness and no pedal edema Neuro: COMMON NORMALS: patient oriented x3, CN's II-XII intact bilaterally and moves all extremities Psych: COMMON NORMALS: mental status grossly normal Data 06/01/24 11:30 06/01/24 11:30 A&P Assessment and plan (1) COPD with acute exacerbation: (2) Acute hypoxemic respiratory failure: Plan COPD exacerbation CT angiogram the chest as she has complaints of hemoptysis ? Respiratory viral panel ? DuoNeb -Solu-Medrol 40 mg IV every 8 hours ? Low-dose sliding scale -Monitor respiratory status closely -Full code ? Lovenox for DVT prophylaxis Attestations Medical Necessity Statement*: Patient requires hospitalization, inpatient greater than 2 midnights, for COPD exacerbation Coding Level of Care Code Acute Code for [facility] Fwd Diagnoses COPD with acute exacerbation J44.1 Acute hypoxemic respiratory failure J96.01
[2024-06-01 15:42] LABS: Adenovirus Not Detected (NOT DETECT); Chlamydia Pneumoniae Not Detected (NOT DETECT); Coronavirus 229E,HKU1,NL63,OC4 Not Detected (NOT DETECT); Human Metapneumovirus Not Detected (NOT DETECT); Human Rhinovirus/Enterovirus Detected (NOT DETECT); Influenza A Not Detected (NOT DETECT); Influenza A H1 Not Detected (NOT DETECT); Influenza A H1-2009 Not Detected (NOT DETECT); Influenza A H3 Not Detected (NOT DETECT); Influenza B Not Detected (NOT DETECT); Mycoplasma Pneumoniae Not Detected (NOT DETECT); Parainfluenza Virus Type 1 Not Detected (NOT DETECT); Parainfluenza Virus Type 2 Not Detected (NOT DETECT); Parainfluenza Virus Type 3 Not Detected (NOT DETECT); Parainfluenza Virus Type 4 Not Detected (NOT DETECT); Respiratory Syncytial Virus A Not Detected (NOT DETECT); Respiratory Syncytial Virus B Not Detected (NOT DETECT); SARS-COV-2 Not Detected (NOT DETECT)
[2024-06-01 17:03] LABS: Glucose Point of Care 285 mg/dL (70-110)
[2024-06-01 17:11] LABS: Estmated Average Glucose 166; Hemoglobin A1C 7.4 % (4.0-6.0)
[2024-06-01 17:19] LABS: Chol HDL Ratio 2.32 mg/dL (0.0-4.40); Cholesterol 116 mg/dL (0-200); HDL Cholesterol 50 mg/dL (60-100); LDL Cholesterol Calculated 54 mg/dL (50-129); LDL HDL Ratio 1.08 RATIO (0.00-3.22); Triglycerides 59 mg/dL (0-150)
[2024-06-01] MEDS: insulin lispro 100 unit/1 mL SUBCUT (17:44)
[2024-06-01] MEDS: ALPRAZolam 0.5 mg Tablet 0.25 MG PO (17:44)
[2024-06-01] MEDS: gabapentin 300 mg Capsule PO (17:44)
--- NOTE | 2024-06-01 18:26 | PC.NURSE ---
When explaining to pt the purpose of SCD's and what we use them for, she requested to not have them placed.
[2024-06-01] MEDS: budesonide 0.5 mg/2 mL Neb INHALATION (19:42)
[2024-06-01 20:18] LABS: Glucose Point of Care 185 mg/dL (70-110)
[2024-06-01] MEDS: enoxaparin 40 mg/0.4 mL Syringe SUBCUT (21:04)
[2024-06-02] VITALS (16 sets, daily range): BP systolic 98–142; BP diastolic 54–64; PULSE 80–107; RESP 16–22; TEMP 36.6–37; O2SAT 91–96; BMI 20.9
[2024-06-02 04:33] LABS: Basophils % 0.1 %; Hematocrit 40.6 % (36-47); Lymphocytes % 11.1 %; Mean Corpuscular Hemoglobin 26.7 pg (27-33); Mean Corpuscular Volume 83.5 fl (85-98); Mean Platelet Volume 11.6 fL (7.4-10.4); Monocytes # 0.6 10^3/uL (0.2-0.9); Monocytes % 6.4 %; Neutrophils # 7.38 10^3/uL (1.8-7.7); Nucleated Red Blood Cells % 0 %; Platelet Count 250 10^3/cmm (157-399); Red Blood Count 4.86 10^6/uL (3.85-5.65); Red Cell Distribution Width 14.9 % (12.1-15.1); White Blood Count 9.01 10^3/uL (3.29-11.43)
[2024-06-02 04:48] LABS: Anion Gap 15.1 (5-19); Blood Urea Nitrogen 12 mg/dL (8-23); Calcium 8.9 mg/dL (8.5-10.5); Carbon Dioxide 24 mmol/L (22-29); Chloride 105 mmol/L (98-107); Creatinine Clr Calc Pharmacy 51.1881; Glomerular Filtration Rate 71.1 mL/min (90-130); Glucose 196 mg/dL (65-115); Magnesium 1.9 mg/dL (1.7-2.3); Osmolality Calculated 295 mOsm/kg (285-295); Potassium 4.1 mmol/L (3.5-5.1); Sodium 140 mmol/L (136-145)
[2024-06-02 06:19] LABS: Glucose Point of Care 169 mg/dL (70-110)
[2024-06-02] MEDS: methylPREDNISolone sod succ 40 mg/mL INJ IVP ×3 (06:28→23:25)
--- NOTE | 2024-06-02 06:47 | PC.NURSE ---
This nurse logged and placed patients home medications in pyxis. Pt has copy of belonging paper.
[2024-06-02] MEDS: ipratropium-albuterol 3 mL Neb INHALATION ×4 (07:39→20:10)
[2024-06-02] MEDS: budesonide 0.5 mg/2 mL Neb INHALATION ×2 (07:39→20:10)
[2024-06-02] MEDS: pantoprazole DR 40 mg Tablet PO (08:34)
[2024-06-02] MEDS: insulin lispro 100 unit/1 mL SUBCUT ×3 (08:34→17:20)
[2024-06-02] MEDS: gabapentin 300 mg Capsule PO ×2 (08:35→17:20)
--- NOTE | 2024-06-02 10:06 | PC.CHAP ---
Pastoral Care Encounter/Spiritual Assessment Type of Contact [] Declined comic illustrator visit [] Patient/Family/Request visit [] Outpatient visit [] Follow-up visit [] Physician referral [] Code/Alert [x] Routine visit [] Staff referral [] Actively dying [] Patient sleeping [] Family support [] [] Out of room [] Palliative care [] [] Receiving care in room [] Pre-surgical visit [] Trauma [] Long length of stay [] ICU visit [] Other: Relational/Emotional Strength [] Patient feels connected with others/family/visitors/staff [] Distress [] Loneliness/isolation [] Abandonment Spirituality of Patient [] Person of Oksana [] Attends Tenriism of their Oksana [] Believes in Prayer [] Reads Bible or Restorationism materials [] There are Spiritual issues to be addressed Automatic [employer] Interventions [] Prayer [] Active listening [] Non-anxious presence [] Spiritual/emotional support [] Crisis/trauma care [] Spiritual counseling [] Bereavement support [] Provided bereavement packet [] Provided Bible/devotional materials [] Provided toy/stuffed animal, coloring book to patient or family member [] Provided Communion [] Anointing/[place] [] Salvation [] Completed spiritual assessment [] Other: Impact on Illness or Injury [] Angry [] Fearful [] Anxious [] Often cries [] Exhaustion [] Unable to work [] Unable to attend yarsanism [] Unable to walk/stand [] Unable to read [] Unable to drive [] Unable to eat/drink [] Unable to sleep [] Unable to be with family [] Patient intubated [] Other: Summary precaution Time spent with patient
[2024-06-02 10:39] LABS: Glucose Point of Care 283 mg/dL (70-110)
--- NOTE | 2024-06-02 13:53 | P.PN_ITS ---
Subjective 2 Subjective: Patient was seen this morning, continues to complain of wheezing and shortness of breath no fevers, no chills Patient tells that she has been using doxepin 50 mg for many years, for depression, insomnia, we discussed that such high doses of doxepin are associated increased risk of morbidity and mortality, she understands this but she has been using it for many years, Vitals/I&O/Wt Last Vital Signs Temp 97.8 F 06/02/24 11:43 Pulse 100 06/02/24 11:43 Resp 16 06/02/24 11:43 BP 117/58 06/02/24 11:43 Pulse Ox 93 06/02/24 11:43 O2 Del Method Nasal Cannula 06/02/24 11:43 O2 Flow Rate 3 06/02/24 11:23 06/01/24 06/02/24 06/02/24 22:59 06:59 14:59 Intake Total 480 / 480 240 / 720 240 / 240 Balance 480 / 480 240 / 720 240 / 240 Weight last 48 hrs Weight 50.439 kg Weight 50.439 kg Weight 49.895 kg Physical Exam 2 Const: COMMON NORMALS: no acute distress and patient oriented x3 HENMT: COMMON NORMALS: normocephalic HEAD & SCALP: normocephalic Resp: COMMON NORMALS: normal respiratory effort, No retractions and No use of accessory muscles AUSCULTATION: wheezes Cardio: COMMON NORMALS: regular rate, regular rhythm, S1 normal heart sound present and S2 normal heart sound present RATE: regular rate RHYTHM: r egular rhythm HEART SOUNDS: S1 normal heart sound present and S2 normal heart sound present GI: COMMON NORMALS: Normal to inspection, nondistended, normoactive bowel sounds present and non-tender Extremity: COMMON NORMALS: no calf tenderness and no pedal edema Neuro: COMMON NORMALS: patient oriented x3 Psych: COMMON NORMALS: mental status grossly normal Data 06/02/24 03:28 06/02/24 03:28 Micro: Microbiology 06/01/24 17:25 Blood Culture - Preliminary Blood SPECIMEN COLLECTED 06/01/24 17:20 Blood Culture - Preliminary Blood SPECIMEN COLLECTED A&P Assessment and plan (1) COPD with acute exacerbation: (2) Acute hypoxemic respiratory failure: Plan COPD exacerbation, rhinovirus positive CT angiogram the chest as she has complaints of hemoptysis ? Respiratory viral panel negative ? DuoNeb -Solu-Medrol 40 mg IV every 8 hours ? Low-dose sliding scale -Monitor respiratory status closely -Full code ? Lovenox for DVT prophylaxis -Will decrease doxepin dose to 25 mg nightly Attestations 2 Medical Necessity Statement*: Patient requires hospitalization for COPD exacerbation, rhinovirus positive Diagnoses COPD with acute exacerbation J44.1 Acute hypoxemic respiratory failure J96.01
[2024-06-02 16:35] LABS: Glucose Point of Care 147 mg/dL (70-110)
[2024-06-02] MEDS: ALPRAZolam 0.5 mg Tablet 0.25 MG PO (19:58)
[2024-06-02 20:11] LABS: Glucose Point of Care 241 mg/dL (70-110)
[2024-06-02] MEDS: enoxaparin 40 mg/0.4 mL Syringe SUBCUT (20:57)
[2024-06-02] MEDS: doxepin 50 mg Capsule PO (21:25)
[2024-06-03] VITALS (12 sets, daily range): BP systolic 101–143; BP diastolic 58–80; PULSE 87–105; RESP 16–20; TEMP 36.4–36.9; O2SAT 87–96; BMI 20.9
[2024-06-03] MEDS: methylPREDNISolone sod succ 40 mg/mL INJ IVP (06:08)
[2024-06-03 06:18] LABS: Basophils % 0.1 %; Hematocrit 41.7 % (36-47); Lymphocytes # 0.9 10^3/uL (0.8-4.8); Lymphocytes % 6.5 %; Mean Corpuscular HGB Conc 31.7 g/dL (30-55); Mean Corpuscular Hemoglobin 26.9 pg (27-33); Mean Corpuscular Volume 84.9 fl (85-98); Mean Platelet Volume 10.7 fL (7.4-10.4); Monocytes # 0.4 10^3/uL (0.2-0.9); Monocytes % 2.6 %; Neutrophils # 11.97 10^3/uL (1.8-7.7); Neutrophils % 90.1 %; Nucleated Red Blood Cells % 0 %; Platelet Count 280 10^3/cmm (157-399); Red Blood Count 4.91 10^6/uL (3.85-5.65); Red Cell Distribution Width 15.4 % (12.1-15.1); White Blood Count 13.29 10^3/uL (3.29-11.43)
[2024-06-03 06:32] LABS: Glucose Point of Care 223 mg/dL (70-110)
[2024-06-03 06:47] LABS: Blood Urea Nitrogen 17 mg/dL (8-23); Calcium 8.9 mg/dL (8.5-10.5); Carbon Dioxide 21 mmol/L (22-29); Chloride 106 mmol/L (98-107); Creatinine Clr Calc Pharmacy 51.1881; Glomerular Filtration Rate 71.1 mL/min (90-130); Glucose 216 mg/dL (65-115); Osmolality Calculated 294 mOsm/kg (285-295); Sodium 138 mmol/L (136-145)
[2024-06-03 06:49] LABS: Anion Gap 15.7 (5-19); Potassium 4.7 mmol/L (3.5-5.1)
[2024-06-03] MEDS: budesonide 0.5 mg/2 mL Neb INHALATION (07:23)
[2024-06-03] MEDS: ipratropium-albuterol 3 mL Neb INHALATION (07:23)
[2024-06-03] MEDS: insulin lispro 100 unit/1 mL SUBCUT ×2 (07:56→11:57)
[2024-06-03] MEDS: pantoprazole DR 40 mg Tablet PO (07:56)
[2024-06-03] MEDS: gabapentin 300 mg Capsule PO (07:56)
--- NOTE | 2024-06-03 08:57 | ECG_ITS ---
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 Measurements Intervals [place] Rate: 100 P: 67 WV: 145 QRS: 16 QRSD: 122 T: 7 QT: 347 QTc: 448 Interpretive Statements SINUS TACHYCARDIA RIGHT BUNDLE BRANCH BLOCK [120+ ms QRS DURATION, UPRIGHT V1, 40+ ms S IN I/aVL/V4/V5/V6] Compared to ECG 06/01/2024 12:00:49 Sinus rhythm no longer present Electronically Signed On 06-04-2024 6:25:50 CDT by Alejandro Pugh M.D. [id number]
--- NOTE | 2024-06-03 08:58 | USCV_ITS ---
Ines Serna Age: 69 Gender: F : 1955 Exam Date: 06/03/2024 10:18 Ordering Phys: James Parada MD Technologist: Exam Location: [facility] Indication: nstemi BP: 132 / 7 HR: 96 Rhythm: Sinus Technical Quality: Adequate MEASUREMENTS (Male / Female) Normal Values 2D ECHO LV Diastolic Diameter PLAX 3.4 cm 4.2 - 5.9 / 3.9 - 5.3 cm IVS Diastolic Thickness 1.0 cm 0.6 - 1.0 / 0.6 - 0.9 cm IVS Systolic Thickness 1.3 cm LVPW Diastolic Thickness 1.2 cm 0.6 - 1.0 / 0.6 - 0.9 cm LVPW Systolic Thickness 1.1 cm LVOT Diameter 1.8 cm LV Ejection Fraction 2D Teich 70.8 % LV Ejection Fraction MOD 4C 71.5 % LV Ejection Fraction MOD 2C 79.2 % LV Ejection Fraction 2C AL 81.2 % LA Diameter 2.8 cm LA Sys Volume AL 23.6 cm cubed LA Sys Volume Index AL 15.5 cm cubed/m squared Aorta at Sinotubular Diameter 2.6 cm IVC Diameter 1.4 cm M-MODE LA Ao Ratio MM 0.9 AV Cusp Separation MM 2.0 cm DOPPLER AV Peak Velocity 125.0 cm/s LVOT Peak Velocity 97.0 cm/s AV Area Cont Eq vti 2.0 cm squared AV Area Cont Eq pk 1.9 cm squared MV Peak Velocity 124.0 cm/s MV Area PHT 5.1 cm squared Mitral E to A Ratio 0.8 TR Peak Velocity 154.0 cm/s TR Peak Gradient 9.5 mmHg TV Peak E Velocity 79.0 cm/s Right Atrial Pressure 3.0 mmHg Pulmonary Artery Systolic Pressu 12.5 mmHg PV Peak Velocity 88.0 cm/s FINDINGS Left Ventricle Normal left ventricular size and systolic function, EF 78%.no regional wall motion abnormalities. Grade I/IV diastolic dysfunction (abnormal relaxation filling pattern), normal to mildly elevated filling pressures. Right Ventricle Normal right ventricular size and systolic function. Right Atrium The right atrium is normal in size. Left Atrium The left atrium is normal in size. Mitral Valve No gross abnormalities noted Aortic Valve Thickened aortic valve. Tricuspid Valve No gross abnormalities noted Pulmonic Valve Pulmonic valve not well visualized. Pericardium Normal pericardium without effusion. Aorta Normal ascending aorta dimension. IVC Normal inferior vena cava. CONCLUSIONS Normal left ventricular size and systolic function, EF 78%.no regional wall motion abnormalities. Grade I/IV diastolic dysfunction (abnormal relaxation filling pattern), normal to mildly elevated filling pressures. Thickened aortic valve. There is no pericardial effusion. There are no intracardiac masses. No similar previous studies are available for comparison Dr Alejandro Pugh MD FACC (Electronically Signed) Final Date: 03 June 2024 13:36 S
[2024-06-03 09:55] LABS: Troponin(5th) Baseline 10 ng/L (0-10)
[2024-06-03] MEDS: aspirin 81 mg EC Tablet PO (09:56)
[2024-06-03] MEDS: carvedilol 3.125 mg Tablet PO (09:56)
[2024-06-03 10:27] LABS: Glucose Point of Care 205 mg/dL (70-110)
--- NOTE | 2024-06-03 10:57 | P.DS_ITS ---
Discharge Providers Date of Admission: 06/01/24 13:14 Date of Discharge: June 03, 2024 Attending Provider at Admission: James Parada MD Attending Provider at Discharge: James Parada MD Primary Care Provider: Emanuel Gonzales MD Diagnoses at Discharge Discharge Diagnosis (1) COPD with acute exacerbation: Status: Acute (2) Acute hypoxemic respiratory failure: Status: Acute Reason for Visit Reason for Visit: SOB Hospital Course Hospital Course Ines Serna is a 69 year old female with a past medical history of type 2 diabetes mellitus, copd, not an active smoker, who presents [facility] for shortness of breath, cough, fatigue, malaise. According to patient, she has had a head cold for the last few days, does report fevers, cough, fatigue, malaise, shortness of breath, wheezing. She recently returned from a trip near [place], she drove, no calf pain, calf swelling, does report hemoptysis, 1 time, she does not use oxygen at home currently she is on 3 L Patient was admitted to [facility] for COPD observation, viral respiratory tract infection, received inhaler therapy, steroid therapy, oxygen therapy overall clinically monitored. Patient clinical status improved, will be discharged on a prednisone taper, with a close follow-up with primary care provider as outpatient, discharged on oxygen therapy Patient did had an episode of nonsustained V. tach during her hospitalization, she was asymptomatic, no chest pain she does report a coughing episode during that episode, EKG no acute ST-T wave changes, did show sinus tachycardia, magnesium within normal limits potassium within normal limits troponin within normal limits, cardiac echocardiogram within normal limits discharged on aspirin, Coreg, patient was advised if she has any chest pain or palpitations to go to emergency room. Physical Exam Const: COMMON NORMALS: no acute distress and patient oriented x3 Resp: COMMON NORMALS: normal respiratory effort, No retractions, No use of accessory muscles and clear to auscultation bilaterally AUSCULTATION: clear to auscultation bilaterally Cardio: COMMON NORMALS: regular rate, regular rhythm, S1 normal heart sound present and S2 normal heart sound present RATE: regular rate RHYTHM: regular rhythm HEART SOUNDS: S1 normal heart sound present and S2 normal heart sound present GI: COMMON NORMALS: Normal to inspection, nondistended, normoactive bowel sounds present and non-tender Extremity: COMMON NORMALS: no pedal edema Neuro: COMMON NORMALS: patient oriented x3 Psych: COMMON NORMALS: mental status grossly normal Discharge Data Studies Completed and Pending Completed Studies During Hospitalization Category Date Time Status CT angio chest PE protcl [id number] Stat Cat Scan 06/01/24 13:44 Completed XR chest 1V portable [id number] Stat Exams 06/01/24 11:20 Completed Pending at discharge Category Date Time Status Basic Metabolic Panel AM LABS Lab 06/04/24 04:00 Ordered Blood Culture Routine Lab 06/01/24 17:25 Results Complete Blood Count w/Auto AM LABS Lab 06/04/24 04:00 Ordered Magnesium AM LABS Lab 06/04/24 04:00 Ordered Troponin(5th) 2 Hour. Timed Lab 06/03/24 11:31 Ordered Troponin(5th) 6 hour. Timed Lab 06/03/24 15:31 Ordered CV. echo complete* [id number] Stat Ultrasound 06/03/24 08:58 Taken Radiology Impressions Chest X-Ray 06/01/24 11:20 IMPRESSION: No acute findings. Chest CTA 06/01/24 13:44 IMPRESSION: 1. Lobulated liver consistent with cirrhosis. 2. There are emphysematous changes in the lungs. COMMENTS: The presence of pulmonary emphysema on CT is an independent risk factor for lung cancer. In the absence of a history or active diagnosis of lung cancer, it is recommended that this patient with emphysema be evaluated for enrollment in a low dose CT lung cancer screening program. Laboratory Results WBC 13.29 10^3/uL (3.29-11.43) H 06/03/24 05:39 RBC 4.91 10^6/uL (3.85-5.65) 06/03/24 05:39 Hgb 13.20 g/dL (11.27-16.99) 06/03/24 05:39 Hct 41.7 % (36-47) 06/03/24 05:39 MCV 84.9 fl (85-98) L 06/03/24 05:39 MCH 26.9 pg (27-33) L 06/03/24 05:39 MCHC 31.7 g/dL (30-55) 06/03/24 05:39 RDW 15.4 % (12.1-15.1) H 06/03/24 05:39 Plt Count 280 10^3/cmm (157-399) 06/03/24 05:39 MPV 10.7 fL (7.4-10.4) H 06/03/24 05:39 Neut % (Auto) 90.1 % 06/03/24 05:39 Lymph % (Auto) 6.5 % 06/03/24 05:39 [place] % (Auto) 2.6 % 06/03/24 05:39 Eos % (Auto) 0.0 % 06/03/24 05:39 Baso % (Auto) 0.1 % 06/03/24 05:39 Neut # (Auto) 11.97 10^3/uL (1.8-7.7) H 06/03/24 05:39 Lymph # (Auto) 0.9 10^3/uL (0.8-4.8) 06/03/24 05:39 [place] # (Auto) 0.4 10^3/uL (0.2-0.9) 06/03/24 05:39 Eos # (Auto) 0.0 10^3/uL (0.0-0.8) 06/03/24 05:39 Baso # (Auto) 0.0 10^3/uL (0.0-0.1) 06/03/24 05:39 Nucleated RBC % (auto) 0 % 06/03/24 05:39 Nucleated RBCs # 0.0 /100WBC 06/03/24 05:39 Sodium 138 mmol/L (136-145) 06/03/24 05:39 Potassium 4.7 mmol/L (3.5-5.1) 06/03/24 05:39 Chloride 106 mmol/L (98-107) 06/03/24 05:39 Carbon Dioxide 21 mmol/L (22-29) L 06/03/24 05:39 Anion Gap 15.7 (5-19) 06/03/24 05:39 BUN 17 mg/dL (8-23) 06/03/24 05:39 Creatinine 0.8 mg/dL (0.5-0.9) 06/03/24 05:39 GFR Calculation 71.1 mL/min (90-130) L 06/03/24 05:39 Glucose 216 mg/dL (65-115) H 06/03/24 05:39 POC Glucose 205 mg/dL (70-110) H 06/03/24 10:24 Estimat Average Glucose 166 06/01/24 11:30 Hemoglobin A1c 7.4 % (4.0-6.0) H 06/01/24 11:30 Calculated Osmolality 294 mOsm/kg (285-295) 06/03/24 05:39 Calcium 8.9 mg/dL (8.5-10.5) 06/03/24 05:39 Magnesium 2.0 mg/dL (1.7-2.3) 06/03/24 05:39 Total Bilirubin 0.6 mg/dL (0.15-1.2) 06/01/24 11:30 AST 20 U/L (0-32) 06/01/24 11:30 ALT 18 U/L (0-33) 06/01/24 11:30 Alkaline Phosphatase 84 U/L (35-105) 06/01/24 11:30 Troponin T Baseline 10 ng/L (0-10) 06/03/24 09:31 NT-Pro-B Natriuret Pep 56 pg/mL (0-125) 06/01/24 11:30 Total Protein 7.0 g/dL (6.6-8.7) 06/01/24 11:30 Albumin 3.7 g/dL (3.5-5.2) 06/01/24 11:30 Globulin 3.3 g/dL (1.3-4.6) 06/01/24 11:30 Triglycerides 59 mg/dL (0-150) 06/01/24 11:30 Cholesterol 116 mg/dL (0-200) 06/01/24 11:30 LDL Cholesterol, Calc 54 mg/dL (50-129) 06/01/24 11:30 HDL Cholesterol 50 mg/dL (60-100) L 06/01/24 11:30 LDL/HDL Ratio 1.08 RATIO (0.00-3.22) 06/01/24 11: Cholesterol/HDL Ratio 2.32 mg/dL (0.0-4.40) 06/01/24 11:30 Procalcitonin 0.05 ng/mL (0-0.5) 06/01/24 11:30 TSH 2.70 uIU/mL (0.27-4.20) 06/01/24 11:30 Adenovirus (PCR) Not detected (NOT DETECT) 06/01/24 13:47 C. pneumoniae DNA (PCR) Not detected (NOT DETECT) 06/01/24 13:47 Coronavirus 229E (PCR) Not detected (NOT DETECT) 06/01/24 13:47 Human Metapneumovir PCR Not detected (NOT DETECT) 06/01/24 13:47 Influenza A (H1) PCR Not detected (NOT DETECT) 06/01/24 13:47 Influ A (H1/09) PCR Not detected (NOT DETECT) 06/01/24 13:47 Influenza A (H3) PCR Not detected (NOT DETECT) 06/01/24 13:47 Influenza Type A (PCR) Not detected (NOT DETECT) 06/01/24 13:47 Influenza Type B (PCR) Not detected (NOT DETECT) 06/01/24 13:47 M. pneumoniae (PCR) Not detected (NOT DETECT) 06/01/24 13:47 Parainfluenza 1 (PCR) Not detected (NOT DETECT) 06/01/24 13:47 Parainfluenza 2 (PCR) Not detected (NOT DETECT) 06/01/24 13:47 Parainfluenza 3 (PCR) Not detected (NOT DETECT) 06/01/24 13:47 Parainfluenza 4 (PCR) Not detected (NOT DETECT) 06/01/24 13:47 RSV Type A (PCR) Not detected (NOT DETECT) 06/01/24 13:47 RSV Type B (PCR) Not detected (NOT DETECT) 06/01/24 13:47 Entero/Rhino (PCR) Detected (NOT DETECT) A 06/01/24 13:47 SARS-CoV-2 (PCR) Not detected (NOT DETECT) 06/01/24 13:47 SARS-CoV-2 Ag (Rapid) negative (Negative) 06/01/24 11:42 Vitals Last Vital Signs Temp 97.6 F 06/03/24 08:59 Pulse 104 H 06/03/24 08:59 Resp 20 H 06/03/24 08:59 BP 129/66 06/03/24 08:59 Pulse Ox 87 L 06/03/24 09:12 O2 Del Method Nasal Cannula 06/03/24 08:59 O2 Flow Rate 2 06/03/24 09:12 Discharge Plan Discharge Patient Disposition: Home Condition: Stable Prescriptions: New prednisone 10 mg tablet 10 mg PO DIRECTED Qty: 53 0RF Rx Instructions: 4 tabs a day for 5 days, 3 tabs for 5 days, 2 tabs for 5 days, 1 tab for 5 days, 0.5tab for 5 days aspirin 81 mg Tablet,Delayed Release (Dr/Ec) 81 mg PO DAILY 30 Days Qty: 30 0RF carvedilol 3.125 mg Tablet 3.125 mg PO Q12H 30 Days Qty: 60 0RF Continued metformin 750 mg tablet extended release 24 hr 750 mg PO BID budesonide-formoterol [Symbicort] 160-4.5 mcg/actuation HFA aerosol inhaler 2 puff inhalation BID albuterol sulfate [ProAir HFA] 90 mcg/actuation HFA aerosol inhaler 2 puff inhalation Q6H PRN (Reason: Shortness Of Breath) gabapentin 300 mg PO BID pantoprazole [Protonix] 40 mg tablet,delayed release (DR/EC) 40 mg PO DAILY 30 Days Qty: 30 3RF Changed doxepin 50 mg capsule 25 mg PO DAILY Qty: 30 0RF Discharge Orders: Discharge Order (Routine); Ordered 06/03/24 Ordered By: James Parada Other Ambulatory Orders: DME: Oxygen (Order) Location: None Selected Ordered By: James Parada Referrals: [facility] [place] [Outside] Tete Juarez MD [Physician] - 06/12/24 3:45 pm () Emanuel Gonzales MD [Primary Care Provider] - 06/13/24 10:30 am Discharge Diet: Cardiac Discharge Activity: Resume usual activity Patient Instructions: Prednisone (By mouth), Aspirin (By mouth), Carvedilol (By mouth), COPD (Chronic Obstructive Pulmonary Disease) (GEN), Opioid Safety Activity Restrictions/Additional Instructions: - Please follow-up with primary care provider in the next week Please follow-up with pulmonary in 1 to 2 weeks ? Please take prednisone taper as prescribed especially - if you have any worsening fevers, chills, cough please go to emergency room Discharge Attestations Time Spent in Discharge Care*: greater than 30 min Quality Metrics Clinical Quality Measures [ No reported AMI, CVA or VTE this stay] Coding Level of Care Code 09086 Total time (in minutes) for Discharge: 45 Diagnoses COPD with acute exacerbation J44.1 Acute hypoxemic respiratory failure J96.01
--- NOTE | 2024-06-03 11:05 | ECG_ITS ---
[facility] Test Date: 2024-06-03 Pat Name: Ines Serna Department: Room: 277 Gender: Female Medical Care Evaluation Specialist: : 1955 Requested By: James Parada Order Number: [id number] Zack MD: Alejandro Pugh M.D. Measurements Intervals [place] Rate: 98 P: 77 LA: 146 QRS: 20 QRSD: 118 T: 21 QT: 341 QTc: 436 Interpretive Statements SINUS RHYTHM INCOMPLETE RIGHT BUNDLE BRANCH BLOCK [90+ ms QRS DURATION, TERMINAL R IN V1/V2, 40+ ms S IN I/aVL/V4/V5/V6] SEPTAL MYOCARDIAL INFARCTION , OF INDETERMINATE AGE [40+ ms Q WAVE IN V1/V2] MODERATE T-WAVE ABNORMALITY, CONSIDER ANTERIOR ISCHEMIA [-0.1+ mV T-WAVE IN V3/V4] Compared to ECG 06/03/2024 09:10:25 Incomplete right bundle-branch block now present Myocardial infarct finding now present T-wave abnormality now present Possible ischemia now present Sinus tachycardia no longer present Right bundle-branch block no longer present Electronically Signed On 06-04-2024 6:35:38 CDT by Alejandro Pugh M.D. [id number]
[2024-06-03 11:51] LABS: Troponin 5 2HR 7.83 ng/L (0-10)
[2024-06-03 11:58] LABS: Troponin 5 2HR Delta -2.17 ABS# (0-10)
[2024-06-03 15:52] LABS: Troponin 5 6HR 11.28 ng/L (0-10); Troponin 5 6HR Delta 1.28 ng/L (0-12)
--- NOTE | 2024-06-03 16:07 | ECG_ITS ---
[facility] Test Date: 2024-06-03 Pat Name: Ines Serna Department: Room: 277 Gender: Female Health Companion: : 1955 Requested By: James Parada Order Number: [id number] Zack MD: Alejandro Pugh M.D. Measurements Intervals [place] Rate: 79 P: 73 DC: 148 QRS: 18 QRSD: 118 T: 35 QT: 374 QTc: 431 Interpretive Statements SINUS RHYTHM INCOMPLETE RIGHT BUNDLE BRANCH BLOCK [90+ ms QRS DURATION, TERMINAL R IN V1/V2, 40+ ms S IN I/aVL/V4/V5/V6] ST DEVIATION AND MODERATE T-WAVE ABNORMALITY, CONSIDER ANTERIOR ISCHEMIA [-0.1+ mV T-WAVE IN V3/V4] Compared to ECG 06/03/2024 11:05:32 Myocardial infarct finding no longer present T-wave abnormality still present Possible ischemia still present Electronically Signed On 06-04-2024 6:37:31 CDT by Alejandro Pugh M.D. [id number]
== END 2024-06-03 16:30 | disposition home or self-care (01) | DRG 190 ==
LOC: ER 13:21 → MEDSURG 15:09
PROVIDERS: Admitting Provider Family Medicine; Emergency Provider Emergency Medicine; PCP Family Medicine; Visit Provider Family Medicine
DX: J44.0 Chronic obstructive pulmonary disease with (acute) lower respiratory infection (principal); J96.01 Acute respiratory failure with hypoxia; I47.29 Other ventricular tachycardia; J44.1 Chronic obstructive pulmonary disease with (acute) exacerbation; B97.89 Other viral agents as the cause of diseases classified elsewhere; E11.69 Type 2 diabetes mellitus with other specified complication; Z79.84 Long term (current) use of oral hypoglycemic drugs; Z87.891 Personal history of nicotine dependence
CPT/HCPCS: 36415; 36416; 71045; 71275; 80048; 80053; 80061; 82962; 83036; 83735; 83880; 84145; 84443; 84484; 85025; 87040; 87426; 87486; 87581; 87633; 93005; 93306; 94640; 94664; 94760; 96365; 96372; 99285; J1650; J1815; J2919; J7613; J7626; Q9967

== ENCOUNTER 2024-12-05 13:29 | Outpatient (CLI) | payer MEDICARE, MEDICAID, SELFPAY ==
--- NOTE | 2024-12-05 13:34 | MM_ITS ---
WS: [id number] VIEWS: MLO and CC views both breasts. 3D digital tomosynthesis is also included in this exam. Comparison made with prior exam of 04/19/2021, 03/29/2023.. Findings: The breasts are heterogeneously dense, which may obscure small masses. No suspicious mass, tumor calcification or architectural distortion. MM/MM scr BI tomosynthesis [id number] Impression: BI-RADS: 2 - Benign FOLLOW-UP: 1 Year Follow-up This mammogram was also analyzed by the Computer Aided Detection System R2 Imag e [employer].
== END 2024-12-05 13:30 | disposition home or self-care (01) ==
LOC: RAD 13:32
PROVIDERS: PCP Family Medicine; Visit Provider Family Medicine
DX: Z12.31 Encounter for screening mammogram for malignant neoplasm of breast (principal); R92.333 Mammographic heterogeneous density, bilateral breasts
CPT/HCPCS: 77063; 77067

== ENCOUNTER 2024-12-12 07:33 | Outpatient (CLI) | payer MEDICARE, MEDICAID, SELFPAY ==
--- NOTE | 2024-12-12 07:44 | NM_ITS ---
WS: [id number] NUCLEAR MEDICINE GASTRIC EMPTYING EXAMINATION HISTORY: EARLY SATIETY COMPARISON: 07/07/2022 TECHNIQUE: The patient ingested a meal containing 1.0 mCi of Tc 99m sulfur colloid mixed with eggs. The patient was placed in supine position and imaging over the abdomen was performed for a total of 120 minutes. Computer acquisition with the region of interest placed over the stomach to evaluate gastric emptying half-time. 50% emptying of the stomach at 89 minutes. At 120 minutes emptying was greater than 60%. This does represent an improvement since the prior examination. Normal gastric emptying. NM/[place] [id number] IMPRESSION: Normal gastric emptying.
== END 2024-12-12 07:34 | disposition home or self-care (01) ==
LOC: RAD 07:35
PROVIDERS: PCP Family Medicine; Visit Provider Family Medicine
DX: R68.81 Early satiety (principal); R19.8 Other specified symptoms and signs involving the digestive system and abdomen
CPT/HCPCS: 78264; A9541

== ENCOUNTER 2024-12-16 12:41 | Outpatient (CLI) | payer MEDICARE, MEDICAID, SELFPAY ==
--- NOTE | 2024-12-16 12:46 | CT_ITS ---
WS: [id number] LDCT LUNG CANCER SCREENING TECHNIQUE: Noncontrast CT of the chest with coronal and sagittal reformatted images. CLINICAL INFORMATION: HISTORY OF TOBACCO USE COMPARISON: 2022 DLP: 50.10 mGy.cm DIvol: Mean CTDIvol: 0.90 (mGy) All CT scans at [facility] use at least one of these dose optimization techniques: automated exposure control; mA and/or kV adjustment per patient size (includes targeted exams where dose is matched to clinical indication); or iterative reconstruction. FINDINGS: Advanced chronic emphysematous changes. 4 mm noncalcified nodule LEFT upper lobe. 3 mm noncalcified nodule in the lingula. A few tiny subpleural micronodules.Subsegmental atelectasis LEFT lower lobe. Small LEFT perifissural nodules. Normal caliber thoracic aorta. Aortic calcification. Coronary calcification. No mediastinal or hilar lymphadenopathy. No axillary lymphadenopathy. Cirrhotic liver. Splenic granulomas. Normal GE junction. Adrenal glands are normal. Fatty atrophy of the pancreas. Moderate thoracic kyphosis. Mild thoracic curve. CT/CT lung screening [id number] IMPRESSION: LUNG-RADS: 2-Benign Appearance or Behavior FOLLOW UP: 12 Month: Continue annual screening with LDCT
== END 2024-12-16 12:42 | disposition home or self-care (01) ==
LOC: RAD 12:42
PROVIDERS: PCP Family Medicine; Visit Provider Family Medicine
DX: Z12.2 Encounter for screening for malignant neoplasm of respiratory organs (principal); Z87.891 Personal history of nicotine dependence; J43.9 Emphysema, unspecified; R91.8 Other nonspecific abnormal finding of lung field; J98.11 Atelectasis; I70.0 Atherosclerosis of aorta; I25.10 Atherosclerotic heart disease of native coronary artery without angina pectoris; K74.60 Unspecified cirrhosis of liver; L92.8 Other granulomatous disorders of the skin and subcutaneous tissue; K86.89 Other specified diseases of pancreas; M40.294 Other kyphosis, thoracic region; M43.8X4 Other specified deforming dorsopathies, thoracic region
CPT/HCPCS: 71271

== ENCOUNTER → 2025-07-16 14:48 | Outpatient (BNVA) | payer MEDICARE, MEDICAID, SELFPAY | PROVIDERS: PCP Family Medicine; Visit Provider Internal Medicine | DX: J44.89 Other specified chronic obstructive pulmonary disease (principal); R91.8 Other nonspecific abnormal finding of lung field; Z87.891 Personal history of nicotine dependence; J44.9 Chronic obstructive pulmonary disease, unspecified | CPT/HCPCS: 99214 ==

== ENCOUNTER → 2025-10-19 14:32 | Outpatient (BNVA) | payer MEDICARE, MEDICAID, SELFPAY | PROVIDERS: PCP Family Medicine; Visit Provider Internal Medicine | DX: J44.89 Other specified chronic obstructive pulmonary disease (principal); R91.8 Other nonspecific abnormal finding of lung field; Z12.2 Encounter for screening for malignant neoplasm of respiratory organs; Z99.81 Dependence on supplemental oxygen; Z91.199 Patient's noncompliance with other medical treatment and regimen due to unspecified reason; Z87.891 Personal history of nicotine dependence | CPT/HCPCS: 36415; 85025; 99214; Q3014 ==